=== PATIENT | female | born 1985 | race Two or more races ===

== ENCOUNTER → 2024-08-09 | Outpatient (CLI) | payer OTHER, MEDICAID, SELFPAY ==
--- NOTE | 2024-08-09 15:00 | XR_ITS ---
Examination: Pelvic ultrasound, transabdominal, complete Technique: Transabdominal ultrasound of the pelvis performed using grayscale imaging Date and time of exam: August 09, 2024 1616 hours INDICATIONS: History irregular menses pelvic pain one year FINDINGS: Uterus 9.6 x 4.2 x 5.7 cm No uterine mass or intrauterine gestation. Right ovary 3.2 cm arterial flow Left ovary 3.9 cm arterial flow, 2.9 x 2.4 x 2.7 cm cyst IMPRESSION: Left ovarian simple cyst 2.9 x 2.4 x 2.7 cm
== END | disposition home or self-care (01) ==
PROVIDERS: PCP Obstetrics & Gynecology; Referring Provider Obstetrics & Gynecology; Visit Provider Obstetrics & Gynecology
DX: N83.292 Other ovarian cyst, left side (principal)
CPT/HCPCS: 76856

== ENCOUNTER 2025-02-21 07:05 | Day surgery (SDC) | payer OTHER, MEDICAID, SELFPAY ==
[2025-02-20 08:01] VITALS: BMI 22.8
[2025-02-20 08:24] LABS: Collection Type, Urine Clean Catch
[2025-02-20 08:48] LABS: Basophils # (Auto) 0.0 Thou/mm3 (0.0-0.2); Basophils % (Auto) 0 % (0-2.5); Eosinophils # (Auto) 0.1 Thou/mm3 (0.0-0.5); Eosinophils % (Auto) 2 % (0-10); Hematocrit 38.7 % (36.0-46.0); Hemoglobin 12.6 g/dL (12.0-16.0); Immature Granulocytes Auto 0.02 Thou/mm3 (0.00-0.00); Lymphocytes # (Auto) 1.8 Thou/mm3 (1.0-4.8); Lymphocytes % (Auto) 26 % (10-50); Mean Corpuscular HGB Conc 32.6 g/dl (31.0-37.0); Mean Corpuscular Hemoglobin 27.9 pg (25.0-35.0); Mean Corpuscular Volume 86 fL (80-100); Monocytes # (Auto) 0.4 Thou/mm3 (0.0-0.8); Monocytes % (Auto) 6 % (0-12); Neutrophils # (Auto) 4.6 Thou/mm3 (1.8-7.7); Neutrophils % (Auto) 66 % (37-80); Nucleated Red Blood Cell # 0.00 Thou/mm3 (0.00-0.00); Nucleated Red Blood Cell % 0 /100 WBC (0); Platelet Count 176 Thou/mm3 (140-440); RDW Standard Deviation 39.8 fL (36.4-46.3); Red Blood Count 4.52 Miln/mm3 (4.00-5.20); White Blood Count 7.0 Thou/mm3 (3.6-11.0)
[2025-02-20 08:54] LABS: Bilirubin,Urine Negative (Negative); Blood,Urine Negative (Negative); Clarity,Urine Clear (Clear/Hazy); Color,Urine Lt-Yellow (Lt Yel-Yel); Glucose, Urine Negative (Negative); Ketones,Urine Negative (Negative); Leukocyte Esterase,Urine Negative (Negative); Nitrite,Urine Negative (Negative); PH,Urine 7.5 (5.0-7.0); Protein,Urine Negative (Neg - Trace); RBC,Urine 2 /hpf (0-3); Specific Gravity,Urine 1.025 (1.001-1.035); Squamous Epithelial Cell,Urine 6 /hpf (0-5); Urobilinogen,Urine Negative mg/dL (0.0-1.0); WBC,Urine 2 /hpf (0-5)
[2025-02-20 08:57] LABS: Anion Gap 8 (7-16); BUN/Creatinine Ratio 24 Ratio (12-20); Blood Urea Nitrogen 12 mg/dL (9-23); Calcium 9.1 mg/dL (8.3-10.6); Carbon Dioxide 28.1 mMol/L (20.0-31.0); Chloride 106 mMol/L (98-107); Creatinine (Component) 0.5 mg/dL (0.6-1.3); Estimated Creatinine Clearance 153.9 mL/min (>60); Glucose 98 mg/dL (74-106); Osmolality,Calculated 282 (275-295); Potassium 3.9 mMol/L (3.4-5.1); Sodium 142 mMol/L (136-145); eGFR > 60 See Note
[2025-02-20 08:59] LABS: HCG Qualitative,Urine Negative
[2025-02-21] VITALS (8 sets, daily range): BP systolic 97–120; BP diastolic 63–79; PULSE 80–100; RESP 14–20; TEMP 36.6–37; O2SAT 99–100; BMI 22.8
[2025-02-21] MEDS: RINGERS LACTATED 1000 ML 1,000 ML 20 ML IV (07:29)
--- NOTE | 2025-02-21 10:07 | SUR.PHASEI ---
1007 Patient arrived to recovery resting comfortably in [facility], sleeping and able to arouse with verbal prompting then drifts back to sleep, on oxygen 3L via nasal cannula, breathing unlabored, vital signs stable, denies pain, dressing intact to vaginal area; peripad, no bleeding noted, report received from Dr. Barrios/Addi JAIME and Veronica VAZ
--- NOTE | 2025-02-21 10:19 | ESOP_ITS ---
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 She was prepped and draped in the usual sterile fashion after receiving general anesthesia. Position of the dorsal lithotomy. Urinary bladder drained by round Cole catheter both before and after the procedure. Clear urine obtained. A timeout was done and SSI prophylaxis given. Pelvic exam reveals uterine prolapse grade 2. Cervix with a hard posterior lip. Vagina normal ,uterus normal ,adnexa nonpalpable ovaries. Holding the anterior lip of cervix with a single-tooth tenaculum and with gooseneck speculum posteriorly, 8 cc of 1% lidocaine with epinephrine was injected circumferentially around the cervix. Using 2-0 Vicryl suture stay sutures were placed at 12:00 6:00 3:00 and 6:00 at the on the cervix just below the vaginal vault. These were held with the help of Fanny clamps. To provide retraction. Then using a 10 blade knife cervical cone was carved out and removed and sent for histopathology it is open at 3:00. The posterior lip of the cervix is very hard and also friable. Endocervical curettage is done and sent separately to the lab. Then using Monsel sutures and electrocautery hemostasis of the cervical cone bed is obtained. Posteriorly another suture had to be placed twelve 0 Vicryl to get hemostasis. Hemostasis is good stay sutures are cut instrument and sponge count is correct. Red Cole reveals clear urine. Patient sent to recovery in a stable condition. Instrument and sponge count and needle count is correct. Specimen: other (cervical cold knife cone , open at 3 o'clock and ECC ) Estimated blood loss (ml): 20 Complications: none Narrative: see procedure Surgical staff Operation Date: 02/21/25 09:15 Case Staff Anesthesiologist: Mikie Barrios Diagnosis Problem List Completed Was Problem List Reviewed/Reconciled?: Yes
[2025-02-21] MEDS: ACETAMINOPHEN INJ 1,000 MG/100 ML VIAL 1000 MG IV (10:53)
--- NOTE | 2025-02-21 11:27 | SUR.PHASEII ---
1127 Patient meets discharge criteria from recovery, awake and alert, breathing unlabored, vital signs stable, denies pain, dressing intact; no bleeding noted, drinking apple juice; tolerating well, denies nausea, assisted with dressing into her clothing by her , discharge instructions given to patient and patients , signed discharge instructions. Patient given all her belongings prior to discharge, transported via wheelchair and left in a private vehicle.
== END 2025-02-21 11:27 | disposition home or self-care (01) ==
PROVIDERS: Referring Provider Obstetrics & Gynecology; Visit Provider Obstetrics & Gynecology
PROC: 0UBC7ZZ Excision of Cervix, Via Natural or Artificial Opening (ICD-10-PCS; CPT 57520; principal; 2025-02-21 09:00)
DX: D06.9 Carcinoma in situ of cervix, unspecified (principal)
CPT/HCPCS: 57520; 36415; 80048; 81001; 81025; 85025; A4217; A4649; J0131; J0690; J1100; J2250; J2371; J2405; J2704; J3010; J3490; J7120; A9270